=== PATIENT | female | born 1975 ===

== ENCOUNTER 2024-07-04 14:19 | Outpatient (CLI) | payer OTHER | END 2024-07-04 14:32 | disposition home or self-care (01) | LOC: RAD 14:19 | PROVIDERS: ATTEND Obstetrics & Gynecology Gynecology | DX: R05.9 Cough, unspecified (principal) ==

== ENCOUNTER 2024-07-08 08:15 | Inpatient (IN) | payer OTHER ==
[~2024-07-08] VITALS: Ht 147.3 cm; Wt 51.7 kg
[2024-07-13] MEDS ORDERED: VISTASEAL DUAL APPICATOR 1 EACH APPL TOP ONE (10:30)
[2024-07-13] MEDS ORDERED: BUPIVACAINE HCL 30 ML VIAL IJ ONE (10:30)
[2024-07-13] MEDS ORDERED: POVIDONE-IODINE 118 ML BOTT TOP ONE (10:30)
[2024-07-13] MEDS ORDERED: CEFTRIAXONE SODIUM 2,000 MG VIAL IV ONE (10:30)
[2024-07-13] MEDS ORDERED: LIDOCAINE HCL 1%/EPINEPHRINE 20ML VIAL IJ ONE (10:30)
[2024-07-13] MEDS ORDERED: METRONIDAZOLE/SODIUM CHLORIDE 500 MG/100 ML PIGGYBACK IV ONE ×2 (10:30)
[2024-07-13] MEDS ORDERED: THROMBIN,HU/FIBRINOGEN/CALCIUM 10 ML SYRINGE TOP ONE (10:30)
[2024-07-13] MEDS ORDERED: RINGERS SOLUTION,LACTATED 1,000 ML IV SCH (10:56)
[2024-07-13] MEDS ORDERED: CELECOXIB 200 MG CAPSULE PO STA (10:57)
[2024-07-13] MEDS ORDERED: ACETAMINOPHEN 325 MG TABLET PO STA (10:58)
[2024-07-13] MEDS ORDERED: CEFAZOLIN SODIUM 1,000 MG VIAL IV SCH (10:59)
[2024-07-13] MEDS ORDERED: MORPHINE SULFATE 4 MG/ML VIAL IV ONE ×2 (11:40→12:10)
[2024-07-13] MEDS ORDERED: MORPHINE SULFATE 2 MG/ML SYRINGE IV SCH (12:00)
[2024-07-13] MEDS ORDERED: ONDANSETRON HCL 2 MG/ML VIAL IV SCH (12:00)
[2024-07-13] MEDS ORDERED: GABAPENTIN 100 MG CAPSULE PO SCH (13:00)
[2024-07-13 14:43] VITALS: BP 102/67
[2024-07-13 15:02] LABS: HEMATOCRIT 36.7 % (36.0-45.00); HEMOGLOBIN 12.5 g/dL (12.0-15.00); MEAN CELL VOLUME 97.2 fL (80.00-100.00); MEAN CORPUSCULAR HEMOGLOBIN 33.1 pg (27.00-32.0); PLATELET COUNT 327 K/uL (150-450); RED BLOOD COUNT 3.77 M/uL (4.00-6.00); RED CELL DISTRIBUTION WIDTH 12.9 % (11.5-14.5)
[2024-07-13 15:22] LABS: CALCIUM 9.1 mg/dL (8.5-10.1); CREATININE SERUM 0.6 mg/dL (0.55-1.02); GFR 107.62; POTASSIUM 4.47 mEq/L (3.5-5.1)
[2024-07-13 15:38] VITALS: BP 99/66
[2024-07-13 19:40] LABS: HEMATOCRIT 36.5 % (36.0-45.00); HEMOGLOBIN 12.6 g/dL (12.0-15.00); MEAN CELL VOLUME 95.4 fL (80.00-100.00); MEAN CORPUSCULAR HEMOGLOBIN 32.8 pg (27.00-32.0); MEAN CORPUSCULAR HGB CONC 34.4 g/dl (32.0-36.0); PLATELET COUNT 333 K/uL (150-450); RED BLOOD COUNT 3.83 M/uL (4.00-6.00); RED CELL DISTRIBUTION WIDTH 12.9 % (11.5-14.5)
[2024-07-13 20:07] VITALS: BP 125/72
[2024-07-14 00:44] VITALS: BP 99/64
[2024-07-14 07:45] LABS: HEMATOCRIT 33.4 % (36.0-45.00); HEMOGLOBIN 11.5 g/dL (12.0-15.00); MEAN CELL VOLUME 96.6 fL (80.00-100.00); MEAN CORPUSCULAR HEMOGLOBIN 33.2 pg (27.00-32.0); MEAN CORPUSCULAR HGB CONC 34.4 g/dl (32.0-36.0); PLATELET COUNT 308 K/uL (150-450); RED BLOOD COUNT 3.46 M/uL (4.00-6.00); RED CELL DISTRIBUTION WIDTH 12.7 % (11.5-14.5)
[2024-07-14 07:57] VITALS: BP 94/65
[2024-07-14 08:54] LABS: CALCIUM 8.8 mg/dL (8.5-10.1); CREATININE SERUM 0.6 mg/dL (0.55-1.02); GFR 107.62; POTASSIUM 3.69 mEq/L (3.5-5.1)
== END 2024-07-14 10:02 | disposition home or self-care (01) | DRG 743 ==
LOC: EDUNIT# 08:15 → O/R 07-13 05:10 → SURH 07-13 08:15 → OB/GYN 07-13 14:39
PROVIDERS: Surgery; Urology; ADMIT Obstetrics & Gynecology Gynecology; ATTEND Obstetrics & Gynecology Gynecology
PROC: 0DNW4ZZ Release Peritoneum, Percutaneous Endoscopic Approach (ICD-10-PCS; 2024-07-13)
PROC: 0DNE4ZZ Release Large Intestine, Percutaneous Endoscopic Approach (ICD-10-PCS; 2024-07-13)
PROC: 0UNF4ZZ Release Cul-de-sac, Percutaneous Endoscopic Approach (ICD-10-PCS; 2024-07-13)
PROC: 0DTJ4ZZ Resection of Appendix, Percutaneous Endoscopic Approach (ICD-10-PCS; 2024-07-13)
PROC: 0T788DZ Dilation of Bilateral Ureters with Intraluminal Device, Via Natural or Artificial Opening Endoscopic (ICD-10-PCS; 2024-07-13)
PROC: 0DJD8ZZ Inspection of Lower Intestinal Tract, Via Natural or Artificial Opening Endoscopic (ICD-10-PCS; 2024-07-13)
PROC: 0UT94ZZ Resection of Uterus, Percutaneous Endoscopic Approach (ICD-10-PCS; principal; 2024-07-13 12:00)
PROC: 0UT74ZZ Resection of Bilateral Fallopian Tubes, Percutaneous Endoscopic Approach (ICD-10-PCS; 2024-07-13 12:00)
PROC: 0UT24ZZ Resection of Bilateral Ovaries, Percutaneous Endoscopic Approach (ICD-10-PCS; 2024-07-13 12:00)
DX: N80.121 Deep endometriosis of right ovary (principal); N72 Inflammatory disease of cervix uteri; Z20.822 Contact with and (suspected) exposure to COVID-19; K66.0 Peritoneal adhesions (postprocedural) (postinfection)